=== PATIENT | male | born 1950 | race Caucasian/White ===

== ENCOUNTER 2020-04-10 15:08 | Outpatient (CLI) | payer MEDICARE, SELFPAY ==
--- NOTE | 2020-04-10 15:16 | XR_ITS ---
WS: [id number] Chest 2 views, 04/10/2020 Clinical Data: Respiratory failure Comparison: None. Findings: There is a patchy opacity in the left lower lobe which is behind the heart on the PA view. This could represent a minimal viral pneumonia. The right lung is clear. The diaphragms are flattened . The pulmonary vascularity is not increased. Heart is normal. The aortic arch shows calcification. XR/XR chest 2V* [id number] Impression: 1. Possible viral pneumonia and retrocardiac region of left lower lobe and paige mmend repeat chest x-ray in one to 2 days. 2. Hyperinflation and atherosclerosis.
== END 2020-04-10 15:09 | disposition home or self-care (01) ==
LOC: RAD 15:13
PROVIDERS: PCP Family Medicine; Visit Provider Internal Medicine Critical Care Medicine
DX: J96.90 Respiratory failure, unspecified, unspecified whether with hypoxia or hypercapnia (principal); I70.90 Unspecified atherosclerosis
CPT/HCPCS: 71046